=== PATIENT | female | born 1960 | race Caucasian/White ===

== ENCOUNTER 2017-06-30 07:04 | Emergency (ER) | payer OTHER ==
[~2017-06-30] VITALS: Ht 172.7 cm; Wt 69.9 kg
[2017-06-30 07:08] VITALS: Ht 172.7 cm; Wt 69.9 kg
[2017-06-30 10:10] VITALS: BP 120/64
== END 2017-06-30 10:10 | disposition home or self-care (01) ==
LOC: ED 07:04
DX: J11.1 Influenza due to unidentified influenza virus with other respiratory manifestations (principal)
CPT/HCPCS: 87804; Q0092

== ENCOUNTER 2017-11-25 13:26 | Emergency (ER) | payer OTHER ==
[~2017-11-25] VITALS: Ht 172.7 cm; Wt 71.7 kg
[2017-11-25 13:29] VITALS: Ht 172.7 cm; Wt 71.7 kg
[2017-11-25 15:38] VITALS: BP 110/84
== END 2017-11-25 15:39 | disposition home or self-care (01) ==
LOC: ED 13:26
DX: R51 Headache (principal)